=== PATIENT | female | born 1960 | race Asian ===

== ENCOUNTER → 2016-08-06 | Outpatient (CLI) | payer OTHER ==
--- NOTE | 2016-08-06 11:19 | XR ---
EXAMINATION TYPE: XR abdomen 1V DATE OF EXAM: 08/06/2016 11:05 AM COMPARISON: NONE HISTORY: 06/18/2016 FINDINGS: The osseous structures are intact. The bowel gas pattern is nonspecific. Calcifications overlying th e left kidney are no longer seen. There is a nondescript 2 mm calcification within the left upper pel vis which is stable but could potentially be in the course of the left ureter. 3 additional calcifications are seen in the pelvis to on the left and one the right which are stable and likely vascular. IMPRESSION: 1. Nonspecific abdomen. Left renal calculi no longer seen. Pelvic calcifications are stable, however , left upper pelvic calcification measuring 2 mm could potentially be within the course of the left u reter.
== END | disposition home or self-care (01) ==
LOC: RADXRMAIN 10:53
PROVIDERS: ATTEND Urology
DX: N20.0 Calculus of kidney (principal)
CPT/HCPCS: 74000

== ENCOUNTER → 2016-08-13 | Outpatient (CLI) | payer OTHER ==
--- NOTE | 2016-08-13 12:10 | XR ---
EXAMINATION TYPE: XR IVP DATE OF EXAM: 08/13/2016 10:54 AM COMPARISON: NONE HISTORY: Hydronephrosis TECHNIQUE: Following the intravenous administration of 100 mCi contrast imaging is performed over the abdomen. FINDINGS: Assembly Inspector film: Assembly Inspector films of to be noncontributory There is prompt uptake and excretion of contrast on the right. There is delayed excretion on the left . There is moderate to marked left hydronephrosis with calyceal dilatation and infundibular prominenc e. The right calyces infundibula and renal pelvis is normal. The right ureter follows a normal calibe r course and contour to the urinary bladder. There are 2 areas of narrowing within the slightly prominent left ureter. First at the ureterovesical junction. This could be related to a vessel overlying. The second longer areas within the mid proxim al portion. These areas appear to be present on multiple images, narrowing may be chronic stenosis. N o obstructing renal or ureteral stones are evident. Recent passage of a stone could be considered. Urinary bladder fills normally without intraluminal or extramural defects. There is normal post void residual. IMPRESSION: 1. Other may be due to areas of persistent stenosis within the left ureterovesical junction and with in the proximal left ureter. These areas are not distended throughout multiple images of the left ure ter. 2. Moderate to prominent left hydronephrosis. 3. Mild hydroureter which is pending to the urinary bladder.
== END | disposition home or self-care (01) ==
LOC: RADFLMAIN 08:38
PROVIDERS: ATTEND Urology
DX: N13.30 Unspecified hydronephrosis (principal); N13.4 Hydroureter
CPT/HCPCS: 74400; Q9967

== ENCOUNTER → 2016-08-26 | Outpatient (CLI) | payer OTHER ==
[2016-08-26 11:51] LABS: Basophils # (A) 0.1 k/uL (0-0.2); Basophils % (A) 2 %; CHCM 32.2; Eosinophils # (A) 0.1 k/uL (0-0.7); Eosinophils % (A) 1 %; HCT 42.6 % (34.0-46.0); HDW 2.33; HGB 13.8 gm/dL (11.4-16.0); Luc # (Auto) 0.13; Luc % (Auto) 3; Lymphocytes # (A) 2.3 k/uL (1.0-4.8); Lymphocytes % (A) 48 %; MCH 30.1 pg (25.0-35.0); MCHC 32.3 g/dL (31.0-37.0); MCV 93.2 fL (80.0-100.0); Mean Platelet Volume 7.9; Monocytes # (A) 0.3 k/uL (0-1.0); Monocytes % (A) 6 %; Neutrophils % (A) 41 %; RBC 4.57 m/uL (3.80-5.40); RDW 15.1 % (11.5-15.5); WBC 4.9 k/uL (3.8-10.6); WBC (Perox) 4.77
[2016-08-26 11:58] LABS: Appearance,Urine Clear (Clear); Bacteria,Urine Rare /hpf; Bilirubin,Urine Negative (Negative); Glucose,Urine (UA) Negative (Negative); Ketones,Urine Negative (Negative); Leukocyte Esterase,Urine Large (Negative); Mucus,Urine Rare /hpf; Nitrite,Urine Negative (Negative); Particle Count 3493; Protein,Urine Trace (Negative); Squamous Epithelial Cell,Urine <1 /hpf (0-4); UA Billing (MACRO vs. MICRO) MICRO; Urobilinogen,Urine <2.0 mg/dL (<2.0); WBC,Urine 160 /hpf (0-5)
[2016-08-26 12:01] LABS: Anion Gap 13 mmol/L; Blood Urea Nitrogen 16 mg/dL (7-17); Calcium 10.1 mg/dL (8.4-10.2); Carbon Dioxide 26 mmol/L (22-30); Chloride 103 mmol/L (98-107); Glucose 123 mg/dL (74-99); Non-African American GFR(MDRD) >60 (>60 ml/min/1.73 sqM); Potassium 4.3 mmol/L (3.5-5.1); Sodium 142 mmol/L (137-145)
== END ==
LOC: LABPAT 11:30
PROVIDERS: ATTEND Urology
DX: Z01.812 Encounter for preprocedural laboratory examination (principal); R35.0 Frequency of micturition; N13.1 Hydronephrosis with ureteral stricture, not elsewhere classified
CPT/HCPCS: 80048; 81001; 85025

== ENCOUNTER 2016-09-03 08:54 | Day surgery (SDC) | payer OTHER ==
[2016-09-01 11:06] VITALS: BMI 23.0
[~2016-09-03 08:54] MED LIST: DEXAMETHASONE SOD PHOSPHATE 10 MG/ML 1 ML VIAL IV ONE; HYDROmorphone 1 MG/ML 1 ML SYRINGE IVP PRN; LACTATED RINGERS 1,000 ML IV SCH; MIDAZOLAM 2 MG/2 ML VIAL IV PRN; ONDANSETRON 4 MG/2 ML VIAL IVP ONE; ceFAZolin 1,000 MG in DEXTROSE/WATER 1 50ML.BAG IVPB ONE
[2016-09-03 09:24] VITALS: RESP 16
[2016-09-03] MEDS ORDERED: SUCCINYLCHOLINE CHLORIDE 100 MG/5 ML SYR IV ONE (10:50)
[2016-09-03] MEDS ORDERED: fentaNYL (PF) 50 MCG/ML 2 ML AMP ONE (10:50)
[2016-09-03] MEDS ORDERED: MIDAZOLAM 2 MG/2 ML VIAL ONE (10:50)
[2016-09-03] MEDS ORDERED: PROPOFOL 10 MG/ML 20 ML VIAL IV ONE (10:50)
[2016-09-03] MEDS ORDERED: LIDOCAINE 1% INJ 10MG/ML (20 ML MDV) ONE (10:50)
[2016-09-03] MEDS ORDERED: KETOROLAC 30 MG/ML 1 ML VIAL ONE (10:50)
[2016-09-03] MEDS ORDERED: IOHEXOL 350 MG/ML 50ML BOTTLE MISCELLANE ONE (11:08)
[2016-09-03 11:32] VITALS: TEMP 96.8
--- NOTE | 2016-09-03 11:34 | P.OP ---
Date of Procedure: 09/03/16 Preoperative Diagnosis: Left ureteral stricture with hydronephrosis Postoperative Diagnosis: Same Procedure(s) Performed: Cystoscopy, left retrograde pyelogram, left ureteral balloon dilation (6 x 18- Zimbabwean), placement of 7 x 24 double-J catheter Anesthesia: ADELINA Surgeon: Teto Marie Estimated Blood Loss (ml): 0 Pathology: none sent Condition: stable Disposition: PACU Indications for Procedure: Patient is a 55-year-old female with a previous left percutaneous nephrostolithotomy to a very large impacted proximal ureteral stone. A stent was left for 3 weeks postoperatively because of the fear stricture. A follow- up ultrasound identified moderate hydronephrosis. An IVP confirmed a narrowed area in the proximal ureter. She come for balloon dilation Description of Procedure: The patient is brought to the operating suite and given a successful general endotracheal anesthesia. She's placed lithotomy position with a sterile prep and drape. Cystoscopy identifies normal ureteral orifices. Cystitis cystica throughout the trigone. No evidence tumor stone. Within a cone-tipped catheter a left retrograde pyelogram performed identified a narrow proximal ureter consistent with what was seen on the IVP causing hydronephrosis. The ureters passed an 035 wire up into the renal pelvis. Over the wires and passed a 6-18-Zimbabwean dilating balloon and the ureters dilated for 5 minutes. I removed the dilating balloon and passed over the wire a 7 x 24 double-J catheter that coils in the renal pelvis and the bladder the bladder strain the patient's awake and returned recovery in good condition. Tell procedure well be discharged home upon recovery and found the office in 2 weeks. The stent will stay in about 4 weeks.
--- NOTE | 2016-09-03 11:54 | FL ---
EXAMINATION TYPE: FL urography retrograde DATE OF EXAM: 09/03/2016 11:41 AM COMPARISON: NONE HISTORY: Fluoroscopy time TECHNIQUE: Fluoroscopy. FINDINGS: Fluoroscopic guidance was provided of 1 minute and 53 seconds. IMPRESSION: As Above.
[2016-09-03] MEDS ORDERED: ENALAPRILAT 1.25 MG/ML 1 ML VIAL IVP ONE (12:14)
[2016-09-03] MEDS ORDERED: HYDROcodone/APAP 5-325MG 1 EACH TAB PO ONE (13:32)
[2016-09-03 13:35] VITALS: BP 160/90; PULSE 55
== END 2016-09-03 14:09 | disposition home or self-care (01) ==
LOC: OR 08:54
PROVIDERS: ATTEND Urology
DX: N13.1 Hydronephrosis with ureteral stricture, not elsewhere classified (principal); Z87.442 Personal history of urinary calculi; I10 Essential (primary) hypertension; M19.90 Unspecified osteoarthritis, unspecified site; K21.9 Gastro-esophageal reflux disease without esophagitis; Z79.82 Long term (current) use of aspirin; Z79.899 Other long term (current) drug therapy
CPT/HCPCS: 52341; 74420; C2625; C1758; C1769; C1762; J2250; J1100; J2405; J2001; J3010; J1885; J0690; J0330; J2704; Q9967

== ENCOUNTER 2023-04-05 15:30 | Emergency (ER) | payer OTHER ==
--- NOTE | 2023-04-05 15:49 | ED ---
Extremity Problem HPI - General Source: patient, family, RN notes reviewed Mode of arrival: wheelchair Limitations: no limitations - History of Present Illness MD Complaint: extremity pain <Lisa Ulrich - Last Filed: 04/05/23 15:45> <Smith Lui - Last Filed: 04/05/23 19:57> - General Chief complaint: Recheck/Abnormal Lab/Rx Stated complaint: abn EKG sent from Time Seen by Provider: 04/05/23 15:48 - History of Present Illness Initial comments: This is a 62 year old female who presents to the emergency department for left arm pain. Symptoms started this morning. This began in the left shoulder and has started to go into the back and down the arm. She was at urgent care, where they were concerned that her EKG was abnormal, and she was sent here to rule out cardiac problems. Denies any injuries, chest pain, or shortness of breath. BP noted to be elevated on arrival. She reports being compliant with BP medication. (Lisa Ulrich) - Related Data Home Medications Medication Instructions Recorded Confirmed lisinopriL 40 mg PO HS 06/18/16 09/01/16 Multivitamins, Thera [Multivitamin] 1 tab PO DAILY 09/01/16 09/01/16 Previous Rx's Medication Instructions Recorded HYDROcodone/APAP 5-325MG [[place] 1 tab PO Q4HR PRN #20 tab 09/03/16 5-325] Sulfamethox-Tmp 800-160Mg [Bactrim 1 tab PO Q12HR #20 tab 09/03/16 DS 800-160 mg] Cyclobenzaprine [Flexeril] 5 mg PO TID PRN #9 tablet 04/05/23 Ibuprofen [Motrin] 600 mg PO Q8HR PRN #24 tab 04/05/23 Allergies Allergy/AdvReac Type Severity Reaction Status Date / Time PROBIOTIC Allergy Rash/Hives Uncoded 09/01/16 09:52 Review of Systems ROS Other: All systems not noted in ROS Statement are negative. <Lisa Ulrich - Last Filed: 04/05/23 15:45> ROS Other: All systems not noted in ROS Statement are negative. <Smith Lui - Last Filed: 04/05/23 19:57> ROS Statement: Those systems with pertinent positive or pertinent negative responses have been documented in the HPI. Past Medical History Past Medical History: Hypertension, Osteoarthritis (OA) Additional Past Medical History / Comment(s): KIDNEY STONES History of Any Multi-Drug Resistant Organisms: None Reported Additional Past Surgical History / Comment(s): KIDNEY STONE SX, PERCUTANEOUS NEPHROSTOMY, NEPHROSTOLITHOTOMY/LASER LITHOTRIPSY Past Anesthesia/Blood Transfusion Reactions: Motion Sickness Past Psychological History: No Psychological Hx Reported Past Alcohol Use History: Rare Past Drug Use History: None Reported - Past Family History Mother Family Medical History: Dementia Father Family Medical History: Cancer Additional Family Medical History / Comment(s): STOMACH <Lisa Ulrich - Last Filed: 04/05/23 15:45> General Exam <Lisa Ulrich - Last Filed: 04/05/23 15:45> General appearance: alert, in no apparent distress Head exam: Present: atraumatic, normocephalic Eye exam: Present: normal appearance, PERRL ENT exam: Present: normal exam Neck exam: Present: normal inspection, tenderness (Left trapezius, tenderness to palpation) Respiratory exam: Present: normal lung sounds bilaterally. Absent: respiratory distress, wheezes, rales Cardiovascular Exam: Present: regular rate, normal rhythm GI/Abdominal exam: Present: soft. Absent: distended, tenderness, guarding Extremities exam: Present: normal inspection, normal capillary refill Back exam: Present: normal inspection, tenderness (Left rhomboid tenderness palpation). Absent: vertebral tenderness Neurological exam: Present: alert, oriented X3 Psychiatric exam: Present: normal affect, normal mood Skin exam: Present: warm, dry, intact <Smith Lui Zach - Last Filed: 04/05/23 19:57> - General Exam Comments Initial Comments: Visual Physical Exam Vital signs reviewed General: Well-appearing, nontoxic, no acute distress. Head: Normocephalic, atraumatic Eyes: PERRLA, EOMI ENT: Airway patent Chest: Nonlabored breathing Skin: No visual rash, normal skin tone Neuro: Alert and oriented 3 Musculoskeletal: No gross abnormalities I performed the QuickNote portion of this chart. Signed Lisa Ulrich PA-C. (Lisa Ulrich) Course Vital Signs 04/05/23 04/05/23 04/05/23 15:46 16:29 17:04 Temperature 98.7 F Pulse Rate 75 76 75 Respiratory 20 18 20 Rate Blood Pressure 217/106 206/109 221/114 O2 Sat by Pulse 98 Oximetry 04/05/23 19:30 Temperature Pulse Rate 73 Respiratory 20 Rate Blood Pressure 187/93 O2 Sat by Pulse 98 Oximetry Medical Decision Making - Lab Data Result diagrams: 04/05/23 16:13 04/05/23 17:30 <Smith Lui N - Last Filed: 04/05/23 19:57> - Medical Decision Making Was pt. sent in by a medical professional or institution (, PA, INDIRECT SALES REPRESENTATIVE, urgent care, hospital, or long term...) When possible be specific @Patient was sent from urgent care for anginal equivalent Did you speak to anyone other than the patient for history (EMS, parent, family, police, friend...)? What history was obtained from this source @ -No Did you review nursing and triage notes (agree or disagree)? Why? @ -I reviewed and agree with nursing and triage notes Were old charts reviewed (outside hosp., previous admission, EMS record, old EK G, old radiological studies, urgent care reports/EKG's, long term records)? Report findings @ -No old charts were reviewed Differential Diagnosis (chest pain, altered mental status, abdominal pain women, abdominal pain men, vaginal bleeding, weakness, fever, dyspnea, syncope, headache, dizziness, GI bleed, back pain, seizure, CVA, palpatations, mental health, musculoskeletal)? @ -[Differential Musculoskeletal Muscular strain, contusion, ligament sprain, fracture, arthritis, septic arthritis, bursitis, cellulitis, muscle spasm, nerve compression, DVT, arterial occlusion, herpes zoster, electrolyte abnormality, tumor.... This is not meant to be in all inclusive list EKG interpreted by me (3pts min.). @ -Sinus rhythm rate 77, WA interval 156, QRS duration 99, QTC [address] segment changes. X-rays interpreted by me (1pt min.). @Chest x-ray, shoulder x-ray negative for traumatic injury or acute findings CT interpreted by me (1pt min.). @ -CT angiography of the torso negative for dissection, no aneurysm, no acute f indings U/S interpreted by me (1pt. min.). @ -None done What testing was considered but not performed or refused? (CT, X-rays, U/S, labs)? Why? @ -None What meds were considered but not given or refused? Why? @ -None Did you discuss the management of the patient with other professionals (professionals i.e. , PA, INDIRECT SALES REPRESENTATIVE, lab, RT, psych nurse, professor of social work, art sales consultant, te acher, tactical intelligence officer, casework manager)? Give summary @ -No Was smoking cessation discussed for >3mins.? @ -No Was critical care preformed (if so, how long)? @ -No Were there social determinants of health that impacted care today? How? (Homelessness, low income, unemployed, alcoholism, drug addiction, transportation, low edu. Level, literacy, decrease access to med. care, fci, rehab)? @ -No Was there de-escalation of care discussed even if they declined (Discuss DNR or withdrawal of care, Hospice)? DNR status @ -No What co-morbidities impacted this encounter? (DM, HTN, Smoking, COPD, CAD, Cancer, CVA, ARF, Chemo, Hep., AIDS, mental health diagnosis, sleep apnea, morbid obesity)? @ -[Hypertension. Was patient admitted / discharged? Hospital course, mention meds given and route, prescriptions, significant lab abnormalities, going to OR and other pertinent info. @ -62 -year-old female with left posterior shoulder pain. Pain is reproducible, tenderness over the rhomboid muscle groups. Patient was sent over for evaluation of possible anginal equivalent and elevated blood pressure. Her blood pressures quite elevated although I suspect this is related to pain. She had a nonischemic EKG. Chest x-ray and shoulder x-ray were unremarkable. She had a minimally elevated d-dimer and therefore CT angiography was ordered which was negative for acute findings. Patient was feeling significantly better after Valium and Toradol. Her exam is completely consistent with a musculoskeletal cause of her pain and given the negative workup she is stable for discharge at this time. She will monitor her blood pressure at home. Return parameters d iscussed. Undiagnosed new problem with uncertain prognosis? @ -No Drug Therapy requiring intensive monitoring for toxicity (Heparin, Nitro, Insu christina, Cardizem)? @ -No Were any procedures done? @ -No Diagnosis/symptom? @ -Rhomboid muscle strain, hypertension Acute, or Chronic, or Acute on Chronic? @ -[Acute Uncomplicated (without systemic symptoms) or Complicated (systemic symptoms)? @ -default Side effects of treatment? @ -No Exacerbation, Progression, or Severe Exacerbation? @ -No Poses a threat to life or bodily function? How? (Chest pain, [place], [place], pneumonia, PE, COPD, DKA, ARF, appy, cholecystitis, CVA, Diverticulitis, Homicidal, Suicidal, threat to staff... and all critical care pts) @ -[Low risk at this time (Smith Lui) - Lab Data Lab Results 04/05/23 04/05/23 04/05/23 Range/Units 16:13 16:13 17:30 WBC 7.3 (3.8-10.6) k/uL RBC 4.39 (3.80-5.40) m/uL Hgb 13.8 (11.4-16.0) gm/dL Hct 41.9 (34.0-46.0) % MCV 95.5 (80.0-100.0) fL MCH 31.5 (25.0-35.0) pg MCHC 33.0 (31.0-37.0) g/dL RDW 12.3 (11.5-15.5) % Plt Count 242 (150-450) k/uL MPV 8.1 Neutrophils % 66 % Lymphocytes % 26 % Monocytes % 5 % Eosinophils % 1 % Basophils % 0 % Neutrophils # 4.8 (1.3-7.7) k/uL Lymphocytes # 1.9 (1.0-4.8) k/uL Monocytes # 0.4 (0-1.0) k/uL Eosinophils # 0.1 (0-0.7) k/uL Basophils # 0.0 (0-0.2) k/uL PT 9.9 (9.0-12.0) sec INR 0.9 (<1.2) APTT 24.8 (22.0-30.0) sec D-Dimer 0.80 H (<0.60) mg/L FEU Sodium (137-145) mmol/L Potassium (3.5-5.1) mmol/L Chloride (98-107) mmol/L Carbon Dioxide (22-30) mmol/L Anion Gap mmol/L BUN (7-17) mg/dL Creatinine (0.52-1.04) mg/dL Est GFR (CKD-EPI)AfAm (>60 ml/min/1.73 sqM) Est GFR (CKD-EPI)NonAf (>60 ml/min/1.73 sqM) Glucose (74-99) mg/dL Calcium (8.4-10.2) mg/dL Magnesium (1.6-2.3) mg/dL Total Bilirubin (0.2-1.3) mg/dL AST (14-36) U/L ALT (4-34) U/L Alkaline Phosphatase (38-126) U/L Troponin I <0.012 (0.000-0.034) ng/mL Total Protein (6.3-8.2) g/dL Albumin (3.5-5.0) g/dL 04/05/23 Range/Units 17:30 WBC (3.8-10.6) k/uL RBC (3.80-5.40) m/uL Hgb (11.4-16.0) gm/dL Hct (34.0-46.0) % MCV (80.0-100.0) fL MCH (25.0-35.0) pg MCHC (31.0-37.0) g/dL RDW (11.5-15.5) % Plt Count (150-450) k/uL MPV Neutrophils % % Lymphocytes % % Monocytes % % Eosinophils % % Basophils % % Neutrophils # (1.3-7.7) k/uL Lymphocytes # (1.0-4.8) k/uL Monocytes # (0-1.0) k/uL Eosinophils # (0-0.7) k/uL Basophils # (0-0.2) k/uL PT (9.0-12.0) sec INR (<1.2) APTT (22.0-30.0) sec D-Dimer (<0.60) mg/L FEU Sodium 135 L (137-145) mmol/L Potassium 3.8 (3.5-5.1) mmol/L Chloride 104 (98-107) mmol/L Carbon Dioxide 23 (22-30) mmol/L Anion Gap 8 mmol/L BUN 24 H (7-17) mg/dL Creatinine 0.61 (0.52-1.04) mg/dL Est GFR (CKD-EPI)AfAm >90 (>60 ml/min/1.73 sqM) Est GFR (CKD-EPI)NonAf >90 (>60 ml/min/1.73 sqM) Glucose 114 H (74-99) mg/dL Calcium 9.5 (8.4-10.2) mg/dL Magnesium 1.8 (1.6-2.3) mg/dL Total Bilirubin 0.7 (0.2-1.3) mg/dL AST 33 (14-36) U/L ALT 23 (4-34) U/L Alkaline Phosphatase 65 (38-126) U/L Troponin I (0.000-0.034) ng/mL Total Protein 7.6 (6.3-8.2) g/dL Albumin 4.1 (3.5-5.0) g/dL Disposition <Lisa Ulrich - Last Filed: 04/05/23 15:45> Is patient prescribed a controlled substance at d/c from ED?: No Time of Disposition: 19:56 <Smith Lui - Last Filed: 04/05/23 19:57> Clinical Impression: Rhomboid muscle strain, Hypertension Disposition: HOME SELF-CARE Condition: Fair Instructions (If sedation given, give patient instructions): Muscle Strain (ED) Additional Instructions: Please monitor your blood pressure and follow-up with her primary care provider Prescriptions: Cyclobenzaprine [Flexeril] 5 mg PO TID PRN #9 tablet PRN Reason: Muscle Spasm Ibuprofen [Motrin] 600 mg PO Q8HR PRN #24 tab PRN Reason: Pain Referrals: Johanna Sylvester DO [Primary Care Provider] - 1-2 days
[2023-04-05 16:13] VITALS: TEMP 98.7
[2023-04-05] MEDS ORDERED: ACETAMINOPHEN TAB 500 MG TAB PO STA (16:19)
[2023-04-05 16:47] LABS: Basophils % (A) 0 %; Eosinophils # (A) 0.1 k/uL (0-0.7); Eosinophils % (A) 1 %; HCT 41.9 % (34.0-46.0); HGB 13.8 gm/dL (11.4-16.0); Lymphocytes # (A) 1.9 k/uL (1.0-4.8); Lymphocytes % (A) 26 %; MCH 31.5 pg (25.0-35.0); MCV 95.5 fL (80.0-100.0); Mean Platelet Volume 8.1; Monocytes # (A) 0.4 k/uL (0-1.0); Monocytes % (A) 5 %; Neutrophils # (A) 4.8 k/uL (1.3-7.7); Neutrophils % (A) 66 %; Platelet Count 242 k/uL (150-450); RBC 4.39 m/uL (3.80-5.40); RDW 12.3 % (11.5-15.5); WBC 7.3 k/uL (3.8-10.6)
--- NOTE | 2023-04-05 16:49 | XR ---
EXAMINATION TYPE: XR chest 2V DATE OF EXAM: 04/05/2023 COMPARISON: None HISTORY: Chest pain TECHNIQUE: Frontal and lateral views of the chest are obtained. FINDINGS: There is mild cardiomegaly but no pulmonary vascular congestion or interstitial edema. There is no airspace/consolidative opacity. There is no pleural effusion or pneumothorax. The osseous structures are intact IMPRESSION: Mild cardiomegaly without acute cardiopulmonary disease.
--- NOTE | 2023-04-05 16:50 | XR ---
Left shoulder. HISTORY: Pain without trauma. COMPARISON: None. TECHNIQUE: 3 views left shoulder were obtained. FINDINGS: There is no fracture, dislocation, intraosseous, intra-articular or soft tissue abnormality. IMPRESSION: No significant abnormality seen.
[2023-04-05 17:14] LABS: INR 0.9 (<1.2); Partial Thromboplastin Time 24.8 sec (22.0-30.0); Prothrombin Time 9.9 sec (9.0-12.0)
[2023-04-05] MEDS ORDERED: hydrALAZINE HCL 20 MG/ML 1 ML VIAL IVP STA (17:19)
[2023-04-05] MEDS ORDERED: SODIUM CHLORIDE 0.9% 500 ML 500 ML IV ONE (17:20)
[2023-04-05 18:06] LABS: ALT 23 U/L (4-34); AST 33 U/L (14-36); African American GFR (CKD) >90 (>60 ml/min/1.73 sqM); Albumin 4.1 g/dL (3.5-5.0); Alkaline Phosphatase 65 U/L (38-126); Anion Gap 8 mmol/L; Blood Urea Nitrogen 24 mg/dL (7-17); Calcium 9.5 mg/dL (8.4-10.2); Carbon Dioxide 23 mmol/L (22-30); Chloride 104 mmol/L (98-107); Glucose 114 mg/dL (74-99); Magnesium 1.8 mg/dL (1.6-2.3); Non-African American GFR(CKD) >90 (>60 ml/min/1.73 sqM); Potassium 3.8 mmol/L (3.5-5.1); Sodium 135 mmol/L (137-145); Total Bilirubin 0.7 mg/dL (0.2-1.3); Total Protein 7.6 g/dL (6.3-8.2)
--- NOTE | 2023-04-05 19:09 | CT ---
EXAMINATION TYPE: CT angio thor/abd pel aorta CT DLP: 1181.8 mGycm, Automated exposure control for dose reduction was used. DATE OF EXAM: 04/05/2023 6:35 PM COMPARISON: 08/14/2010. CLINICAL INDICATION:Female, 62 years old with history of Back pain/HTN; PHH, chest pain TECHNIQUE: Dissection protocol: Multiple axial CT images of the chest, abdomen, and pelvis were obtai francisco j prior and to the administration of IV contrast. 3-D reformats and maximum intensity projection fo rmat were performed on a separate workstation. Contrast used:100 mL of Isovue 370 without and with IV Contrast, Oral contrast used: FINDINGS: ARTERIAL VASCULATURE: The thoracic and abdominal aorta are without evidence for intramural hematoma. No evidence for aneurysmal dilation. Scattered atherosclerosis of the arterial vascular. There is no evidence for intimal flap to suggest dissection. The major vessels of the aortic arch are patent. PULMONARY ARTERIAL VASCULATURE: Normal caliber. No evidence of filling defect to suggest pulmonary em bolus. VENOUS SYSTEM: Unremarkable. Lungs/pleura: No evidence for focal consolidation, pneumothorax or pleural effusion. There is mild pu lmonary vascular congestion in the lung bases. Heart: The heart is mildly enlarged for size. Mediastinum: No gross evidence of adenopathy. Lower Neck: No significant findings. Abdomen: Liver: Simple appearing hepatic cyst. Gallbladder and Bile ducts: Unremarkable. Pancreas: Unremarkable. Spleen: Unremarkable. Adrenal glands: Unremarkable. Kidneys and Ureters: Unremarkable. No hydronephrosis. Bladder: Unremarkable. Reproductive: Lobular contour to the uterus likely representing underlying fibroid change. Stomach and Bowel: Scattered colonic diverticula present. No evidence of bowel obstruction. Peritoneum: No evidence of pneumoperitoneum, free fluid, or adenopathy. Musculoskeletal: Multilevel degeneration changes throughout the spine with osteophyte formation and f acet joint arthropathy. There is grade 1 anterolisthesis of L4 and L5 with at least mild spinal canal stenosis. Lymph nodes: No evidence of lymphadenopathy. Abdominal wall/soft tissues: Unremarkable. IMPRESSION: 1. No evidence for aortic dissection, aneurysm, pulmonary embolism, or acute process. 2. Cardiomegaly with mild pulmonary vascular congestion correlate with serum BNP. 3. Clonic diverticulosis. 4. Fat-containing umbilical hernia. 5. Grade 1 anterolisthesis of L4 and L5 with at least mild spinal canal stenosis. 6. Fibroid uterus suggested. 7. Simple appearing hepatic cyst.
[2023-04-05] MEDS ORDERED: KETOROLAC 15 MG/ML 1 ML VIAL IVP STA (19:14)
[2023-04-05 19:35] VITALS: PULSE 73
[2023-04-05 20:52] VITALS: BP 158/86; RESP 18
== END 2023-04-05 20:44 | disposition home or self-care (01) ==
LOC: EC 15:30
DX: S29.012A Strain of muscle and tendon of back wall of thorax, initial encounter (principal); I10 Essential (primary) hypertension; M19.90 Unspecified osteoarthritis, unspecified site; Z88.8 Allergy status to other drugs, medicaments and biological substances; Z79.899 Other long term (current) drug therapy; X58.XXXA Exposure to other specified factors, initial encounter
CPT/HCPCS: 36415; 93005; 85379; 80053; 83735; 84484; 85025; 85610; 85730; 73030; 71046; 71275; 74174; 99285; 96374; 96375 ×2; 96361; J0360; J3360; J1885; Q9967

== ENCOUNTER → 2023-06-26 | Outpatient (CLI) | payer OTHER ==
--- NOTE | 2023-06-26 15:13 | CT ---
EXAMINATION TYPE: CT abdomen pelvis wo con DATE OF EXAM: 06/26/2023 COMPARISON: 08/14/2010 HISTORY: bilateral flank pain CT DLP: 1053 mGycm Automated exposure control for dose reduction was used. TECHNIQUE: Helical acquisition of images was performed from the lung bases through the pelvis. FINDINGS: The visualized lung bases are clear. The gallbladder is normal without gallstones, wall thickening, distention or pericholecystic fluid. There are a few small simple hepatic cysts. There is no organomegaly involving the liver, pancreas, s pleen or adrenal glands. There are approximately 4 tiny 1 to 2 mm nonobstructing right renal calcifications. The left kidney is moderately atrophic and there is a extrarenal pelvis. In the proximal left ureter tiny 1 to 2 mm faint calcification cannot be excluded. There is no hydronephrosis bilaterally. There is no hydroureter. The urinary bladder is unremarkable. The bowel loops are normal in caliber and there is no dilatation or obstruction. No inflammatory espinal ges identified in the bowel wall or mesentery and there is no free intraperitoneal air or fluid. There is no pelvic mass, free fluid, abscess or adenopathy. No focal osseous lesions are seen. IMPRESSION: 1. Approximate 4 tiny 1 - 2 mm nonobstructing right renal calcifications. 2. Cannot exclude tiny 1 - 2 mm faint calcification in the proximal left ureter. 3. Moderate left renal atrophy. 4. No hydronephrosis or hydroureter.
== END | disposition home or self-care (01) ==
LOC: RADCTMAIN 12:25
PROVIDERS: ATTEND Urology
DX: N20.0 Calculus of kidney (principal); N28.89 Other specified disorders of kidney and ureter; N26.1 Atrophy of kidney (terminal)
CPT/HCPCS: 74176